=== PATIENT | female | born 1970 | race Caucasian/White ===

== ENCOUNTER 2017-03-12 11:35 | Emergency (ER) | payer BC, OTHER ==
[2017-03-12 11:37] VITALS: BMI 24.9
[2017-03-12 11:40] VITALS: TEMP 98.6; O2SAT 100
--- NOTE | 2017-03-12 13:09 | ED PDOC ---
Arrival/HPI - General Chief Complaint: Palpitations Time Seen by Provider: 03/12/17 12:00 Historian: Patient - History of Present Illness Narrative History of Present Illness (Text): 03/12/17 12:47 A 46 year old female, whose past medical history includes anemia and gastritis, presents to the emergency department complaining of feel "unwell" since this morning. Patient reports she started to feel cold, generally weak and heart palpations this morning so she was going to go see her PMD but symptoms worsened so she came here instead. Patient mentions she has been stress do to work and last night she did take a 1mg Melatonin to help her sleep. Patient notes similar episodes in the past for which she was never given a diagnosis. She denies any dizziness, nausea, vomiting, headache, chest pain, shortness of breath or any other complaints at this time. Patient is not a smoker, drinker or drug user. she had been workuped in the past and was also seen by psych coordinator and cleared.. PMD: Dr. Echevarria 03/12/17 20:19 Time/Duration: Prior to Arrival Symptom Onset: Sudden Symptom Course: Intermittent Quality: Other Activities at Onset: Rest Context: Home Past Medical History - Provider Review Nursing Documentation Reviewed: Yes - Infectious Disease Hx of Infectious Diseases: None - Cardiac Hx Cardiac Disorders: No - Pulmonary Hx Respiratory Disorders: No - Neurological Hx Neurological Disorder: No - HEENT Hx HEENT Disorder: Yes (STRABISMUS L EYE.HAD SX A CHILD ABLE TO SEE WELL., HAD LASIK SX BOTH EYES) - Renal Hx Renal Disorder: No - Endocrine/Metabolic Hx Endocrine Disorders: No - Hematological/Oncological Hx Blood Disorders: Yes Hx Anemia: Yes (IRON DEFICIENCY) - Integumentary Hx Dermatological Disorder: No - Musculoskeletal/Rheumatological Hx Musculoskeletal Disorders: No Hx Falls: No - Gastrointestinal Hx Gastrointestinal Disorders: No - Genitourinary/Gynecological Hx Genitourinary Disorders: No - Psychiatric Hx Psychophysiologic Disorder: No Hx Substance Use: No - Surgical History Hx Eye Surgery: Yes Hx Tonsillectomy: Yes - Anesthesia Hx Anesthesia: Yes Hx Anesthesia Reactions: No Family/Social History - Physician Review Nursing Documentation Reviewed: Yes Family/Social History: Unknown Family HX Smoking Status: Never Smoked Hx Alcohol Use: No Hx Substance Use: No Allergies/Home Meds Allergies/Adverse Reactions: Allergies No Known Allergies Allergy (Verified 03/12/17 11:37) Home Medications: Home Meds Medication Instructions Recorded Confirmed No Known Home Med 03/12/17 03/12/17 Review of Systems - Physician Review All systems were reviewed & negative as marked: Yes - Review of Systems Constitutional: Fatigue, Other (cold) Respiratory: absent: SOB Cardiovascular: Palpitations. absent: Chest Pain Gastrointestinal: absent: Nausea, Vomiting Neurological: absent: Headache, Dizziness Physical Exam Vital Signs Reviewed: Yes Vital Signs Temp Pulse Resp BP Pulse Ox 03/12/17 17:00 69 18 121/65 100 03/12/17 15:00 75 18 123/69 100 03/12/17 13:19 79 18 125/71 100 03/12/17 11:37 98.6 F 86 16 127/86 100 Temperature: Afebrile Blood Pressure: Normal Pulse: Regular Respiratory Rate: Normal Appearance: Positive for: Well-Appearing, Non-Toxic, Comfortable Pain Distress: None Mental Status: Positive for: Alert and Oriented X 3 - Systems Exam Head: Present: Atraumatic, Normocephalic Pupils: Present: PERRL Extroacular Muscles: Present: EOMI Conjunctiva: Present: Normal Mouth: Present: Moist Mucous Membranes Neck: Present: Normal Range of Motion Respiratory/Chest: Present: Clear to Auscultation, Good Air Exchange. No: Respiratory Distress, Accessory Muscle Use Cardiovascular: Present: Regular Rate and Rhythm, Normal S1, S2. No: Murmurs Abdomen: Present: Normal Bowel Sounds. No: Tenderness, Distention, Peritoneal Signs Back: Present: Normal Inspection Upper Extremity: Present: Normal Inspection. No: Cyanosis, Edema Lower Extremity: Present: Normal Inspection. No: Edema Neurological: Present: GCS=15, CN II-XII Intact, Speech Normal, Motor Func Grossly Intact, Gait Normal Skin: Present: Warm, Dry, Normal Color. No: Rashes Psychiatric: Present: Alert, Oriented x 3, Normal Insight, Normal Concentration Medical Decision Making ED Course and Treatment: 03/12/17 12:47 Impression: A 46 year old female with generalized weakness, heart palpitations and feeling cold. Differential Diagnosis include but are not limited to: ACS vs. electrolyte imbalance vs. anemia Plan: -- EKG -- Chest X-ray -- Labs -- Urinalysis -- IV Fluids -- Reassess and disposition Prior Visits: Notes and results from previous visits were reviewed. The patient last presented to the emergency department on 04/20/16 for evaluation of palpitations. Progress Notes: EKG: Ordered, reviewed, and independently interpreted the EKG. Rate : 86 BPM Rhythm : NSR Interpretation : No ST-segment elevations or depressions, no T-wave inversions, normal intervals. 03/12/17 16:10 Chest X-ray: Creator : Aris Cruz MD COMPARISON: 04/20/2016 FINDINGS: LUNGS: No active pulmonary disease. PLEURA: No significant pleural effusion identified. No pneumothorax apparent. CARDIOVASCULAR: Normal. OSSEOUS STRUCTURES: No significant abnormalities. VISUALIZED UPPER ABDOMEN: Normal. OTHER FINDINGS: None. IMPRESSION: No active disease. 03/12/17 17:45 On re-evaluation, the patient feels better (was resting comfortably in no distress throughout ER stay) and is in no acute distress. I have discussed the results and plan with the patient, who expresses understanding. Patient in agreement with plan to discharged home. Patient is stable for discharge. Patient was instructed to follow up with physician/clinic in 1-2 days or return if symptoms worsen or new concerning symptoms arise. 03/12/17 20:21 - Lab Interpretations Lab Results: 03/12/17 15:23 03/12/17 15:23 Lab Results 03/12/17 15:23: WBC 7.8, RBC 4.56, Hgb 13.3, Hct 38.0, MCV 83.3, MCH 29.2, MCHC 35.0, RDW 13.9, Plt Count 228, MPV 9.6, Gran % 78.6 H, Lymph % (Auto) 14.8 L, Yates % (Auto) 5.4, Eos % (Auto) 0.9 L, Baso % (Auto) 0.3, Gran # 6.13, Lymph # 1.2, Yates # 0.4, Eos # 0.1, Baso # 0.02, Sodium 139, Potassium 3.8, Chloride 104 , Carbon Dioxide 26, Anion Gap 13, BUN 12, Creatinine 0.7, Est GFR ( Amer ) > 60, Est GFR (Non-Af Amer) > 60, Random Glucose 122 H, Calcium 8.8, Total Bilirubin 0.3, AST 22, ALT 29, Alkaline Phosphatase 42, Lactate Dehydrogenase 422, Total Creatine Kinase 98, Troponin I < 0.01, Total Protein 7.1, Albumin 3.8 , Globulin 3.2, Albumin/Globulin Ratio 1.2, Thyroxine (T4) 8.8, TSH 3rd Generation 0.54, Urine Color Yellow, Urine Appearance Clear, Urine pH 7.0, Ur Specific [place] 1.010, Urine Protein Negative, Urine Glucose (UA) Negative, Urine Ketones Negative, Urine Blood Large H, Urine Nitrate Negative, Urine Bilirubin Negative, Urine Urobilinogen 0.2, Ur Leukocyte Esterase Negative, Urine RBC 10 - 15, Urine WBC 0 - 2, Ur Epithelial Cells 1 - 3, Urine Bacteria Few I have reviewed the lab results: Yes - RAD Interpretation Radiology Orders: 03/12/17 13:14 CHEST TWO VIEWS (PA/LAT) [RAD] Stat - Medication Orders Current Medication Orders: Discontinued Medications Sodium Chloride (Sodium Chloride 0.9%) 1,000 mls @ 100 mls/hr IV .Q10H ROSALINDA Last Admin: 03/12/17 15:27 Dose: 100 MLS/HR eMAR Start Stop Document 03/12/17 15:27 OCS (Rec: 03/12/17 15:27 [place] [facility] [id number] Intravenous Solution Start Date 03/12/17 Start Time 15:27 End Date 03/12/17 - Scribe Statement The provider has reviewed the documentation as recorded by the Tonyaibyumiko Nick Provider Scribe Attestation: All medical record entries made by the Scribe were at my direction and personally dictated by me. I have reviewed the chart and agree that the record accurately reflects my personal performance of the history, physical exam, medical decision making, and the department course for this patient. I have also personally directed, reviewed, and agree with the discharge instructions and disposition. Disposition/Present on Arrival - Present on Arrival Any Indicators Present on Arrival: No History of DVT/PE: No History of Uncontrolled Diabetes: No Urinary Catheter: No History of Decub. Ulcer: No History Surgical Site Infection Following: None - Disposition Have Diagnosis and Disposition been Completed?: Yes Diagnosis: Palpitations Disposition: HOME/ ROUTINE Disposition Time: 14:40 Patient Plan: Discharge Patient Problems: Current Active Problems Problem Status Diagnosed Chest pain Acute Condition: IMPROVED Discharge Instructions (ExitCare): Palpitations (ED) Additional Instructions: follow up with your primary doctor as well as psych coordinator in 2 days. also follow up with neurologist in 2 days. return to the ED with any worsening or concerning symptoms. Referrals: Priya Echevarria MD [Primary Care Provider] - Follow up with primary Jairo Sal MD [Staff Provider] - Follow up with primary
[2017-03-12] MEDS ORDERED: Sodium Chloride 0.9% 1,000 ML IV SCH (13:15)
[2017-03-12 13:19] VITALS: RESP 18
--- NOTE | 2017-03-12 15:20 | CARD ---
APPROVED REPORT EKG Measurement Heart [id number] <Conclusion> Normal sinus rhythm Normal ECG
[2017-03-12 15:29] LABS: ADD MANUAL DIFF? NO
[2017-03-12 15:44] LABS: BASO # 0.02 K/mm3 (0.0-2.0); BASO % 0.3 % (0.0-3.0); EOS # 0.1 (0.0-0.7); EOS % 0.9 % (1.5-5.0); GRAN # 6.13 (1.4-6.5); GRAN % 78.6 % (50.0-68.0); LYMPH # 1.2 (1.2-3.4); LYMPH % 14.8 % (22.0-35.0); MEAN CELL VOLUME 83.3 fL (80.0-105.0); MEAN CORPUSCULAR HEMOGLOBIN 29.2 pg (25.0-35.0); MEAN PLATELET VOLUME 9.6 fl (7.0-11.0); MONO # 0.4 (0.1-0.6); MONO % 5.4 % (1.0-6.0); PLATELET COUNT 228 10^3/uL (120.0-450.0); RED CELL DISTRIBUTION WIDTH 13.9 % (11.5-14.5); WHITE BLOOD COUNT 7.8 10^3/ul (4.5-11.0)
[2017-03-12 15:45] LABS: URINE BILIRUBIN NEGATIVE (NEGATIVE); URINE BLOOD LARGE (NEGATIVE); URINE GLUCOSE (UA) NEGATIVE (NEGATIVE); URINE KETONE NEGATIVE (NEGATIVE); URINE LEUKOCYTE ESTERASE NEGATIVE Leu/uL (NEGATIVE); URINE PROTEIN NEGATIVE mg/dL (<30 mg/dL); URINE UROBILINOGEN 0.2 E.U./dL (<1 E.U./dL)
[2017-03-12 15:51] LABS: ALB/GLOB RATIO 1.2 (1.1-1.8); ALKALINE PHOSPHATASE 42 U/L (38-133); ALT/SGPT 29 U/L (7-56); AST/SGOT 22 U/L (15-39); BILIRUBIN,TOTAL 0.3 mg/dL (0.2-1.3); BLOOD UREA NITROGEN 12 mg/dL (7-21); CALCIUM 8.8 mg/dL (8.4-10.5); CARBON DIOXIDE 26 mmol/L (21-33); CHLORIDE 104 mmol/L (98-107); GFR AFRICAN-AMERICAN > 60; GLUCOSE,RANDOM 122 mg/dL (70-110); POTASSIUM 3.8 mmol/L (3.6-5.0); SODIUM 139 mmol/L (132-148); TOTAL PROTEIN 7.1 g/dL (5.8-8.3)
[2017-03-12 15:56] LABS: URINE APPEARANCE CLEAR (CLEAR); URINE COLOR YELLOW (YELLOW)
[2017-03-12 15:59] LABS: URINE BACTERIA FEW (NEG); URINE WBC 0 - 2 /hpf (0-6)
[2017-03-12 16:03] LABS: TROPONIN I < 0.01 ng/mL
[2017-03-12 16:08] LABS: T4 8.8 ug/dL (5.5-11.0)
--- NOTE | 2017-03-12 16:08 | RAD ---
HISTORY: weakness COMPARISON: 04/20/2016 TECHNIQUE: Chest PA and lateral FINDINGS: LUNGS: No active pulmonary disease. PLEURA: No significant pleural effusion identified. No pneumothorax apparent. CARDIOVASCULAR: Normal. OSSEOUS STRUCTURES: No significant abnormalities. VISUALIZED UPPER ABDOMEN: Normal. OTHER FINDINGS: None. IMPRESSION: No active disease.
[2017-03-12 16:22] LABS: THYROID STIMULATING HORMONE 0.54 mIU/mL (0.46-4.68)
[2017-03-12 17:23] VITALS: BP 121/65; PULSE 69
== END 2017-03-12 17:45 | disposition home or self-care (01) ==
LOC: ED 11:35
DX: R00.2 Palpitations (principal)
CPT/HCPCS: 71020; 80053; 81001; 82550; 83615; 84436; 84443; 84484; 85025; 87086; 93005; 99284; J7040